=== PATIENT | female | born 1990 | race American Indian/Alaskan Native ===

== ENCOUNTER 2018-01-19 09:48 | Emergency (ER) | payer SELFPAY ==
[2018-01-19 09:56] VITALS: BP 133/97
--- NOTE | 2018-01-19 10:44 | Emergency Department Report ---
HPI - HPI HPI: Patient reports that she has sutures to remove that was placed in [place] 10 days ago. To her right forearm and her right leg. She is also reporting that she had asthma as a child and she is having cough congestion and wheezing in with nasal drainage. She said this started 3 days ago and she's been taking over-the -counter medication and is not helping. She said she hasn't had asthma for a while and she is not using any medication so she thinks it's bronchitis. Denies any fever or chills. Denies any chest pain or nausea or vomiting. She said her tetanus shot is up-to-date. She is currently on her menses and she started 2 days ago . Denies redness or swelling around suture sites. <SANTHOSH ARRIETA - Last Filed: 01/19/18 12:48> <DAVY DOTSON - Last Filed: 01/19/18 20:22> - General Chief Complaint: Laceration/Recheck/Suture Time Seen by Provider: 01/19/18 10:27 ED Past Medical Hx - Past Medical History Previous Medical History?: No - Surgical History Past Surgical History?: Yes Additional Surgical History: , Tubal Ligation - Family History Family history: hypertension - Social History Smoking Status: Current Every Day Smoker Substance Use Type: Alcohol <SANTHOSH ARRIETA - Last Filed: 01/19/18 12:48> ED Review of Systems ROS: Stated complaint: CHEST CONGESTION/SUTURE REMOVAL Other details as noted in HPI Comment: All other systems reviewed and negative Constitutional: no symptoms reported Eyes: denies: eye discharge ENT: congestion. denies: ear pain, throat pain, dental pain, hearing loss Respiratory: cough, wheezing. denies: orthopnea, shortness of breath, SOB with exertion, SOB at rest, stridor Cardiovascular: denies: chest pain, palpitations, dyspnea on exertion, edema, syncope, paroxysmal nocturnal dyspnea Gastrointestinal: denies: nausea, vomiting Musculoskeletal: denies: back pain, joint swelling, arthralgia, myalgia Skin: other (history of 4 sutures removal from right forearm and right leg.) <SANTHOSH ARRIETA - Last Filed: 01/19/18 12:48> ROS: Stated complaint: CHEST CONGESTION/SUTURE REMOVAL Other details as noted in HPI <DAVY DOTSON - Last Filed: 04/24/18 20:22> Physical Exam - Physical Exam Vital Signs: Vital Signs 01/19/18 09:53 Temperature 98.4 F Pulse Rate 83 Respiratory 17 Rate Blood Pressure 133/97 O2 Sat by Pulse 96 Oximetry General: This is a 27-year-old female well-nourished well-developed in no acute distress. Physical Exam: Head: Normocephalic atraumatic Ears:BIateral TM congested without erythema and loss of bony landmarks. Eduardo EAC with normal exam. No mastoid bone tenderness. Mouth: Moist, no pharyngeal erythema or exudate . No tonsillar erythema or exudate. UVULA midline and oral airways patent. No peritonsillar abscess Neck: Nontender to palpate, supple, normal range of motion. No adenopathy. No c- spine tenderness. Nose: Bilateral nasal mucosa congested with clear drainage. Maxillary and frontal sinuses non-tender to palpate. Eyes: Bilateral Sclerae and conjunctiva without injection. Bilateral pupils equal and reactive to light. Bilateral lids are normal. Normal accommodation.BEOMI Abdomen: Soft, nontender to palpation in all quadrants, no guarding or rebound tenderness. No CVA tenderness Lungs: Good throughout lung cali with dry cough. Normal work of breathing and no chest wall tenderness CV: S1, S2. Regular rate and rhythm negative murmur. Capillary refill is less than 3 seconds Skin: Clean dry and intact, no rashes or lesions. Patient with 2 laceration 1 to right leg with 3 suture which is healed without any sign of infection in one to right forearm, proximally with 7 sutures without any signs of infection. No tenderness around sides. Psych: Normal mood and behavior <SANTHOSH ARRIETA A - Last Filed: 01/19/18 12:48> - Physical Exam Vital Signs: Vital Signs 01/19/18 09:53 Temperature 98.4 F Pulse Rate 83 Respiratory 17 Rate Blood Pressure 133/97 O2 Sat by Pulse 96 Oximetry <DAVY DOTSON P - Last Filed: 01/19/18 20:22> ED Course Vital Signs 01/19/18 09:53 Temperature 98.4 F Pulse Rate 83 Respiratory 17 Rate Blood Pressure 133/97 O2 Sat by Pulse 96 Oximetry - Reevaluation(s) Reevaluation #1: 01/19/18 12:57 Patient given albuterol 5 mg and Atrovent 1 mg nebulizer in emergency room, prednisone 60 mg by mouth and Rocephin 1 g IM empirically without any adverse reaction. After nebulizer treatment and prednisone ,lung sounds evaluated and patient's lung sounds are clear and she said she felt better. <SANTHOSH ARRIETA - Last Filed: 01/19/18 12:48> Vital Signs 01/19/18 09:53 Temperature 98.4 F Pulse Rate 83 Respiratory 17 Rate Blood Pressure 133/97 O2 Sat by Pulse 96 Oximetry <DAVY DOTSON - Last Filed: 01/19/18 20:22> ED Medical Decision Making - Radiology Data Radiology results: report reviewed Chest x-ray reveals no acute cardiopulmonary processes. - Medical Decision Making ED course: Patient here complaining of cough congestion and wheezing in with history of asthma which she has not had any flareups for years and thinks she has bronchitis. Patient found to have cough, wheeze and upper respiratory tract infection with congestion. She also had 2 lacerations one to right proximal forearm in 1 to right distal leg. Sites were well approximated without any signs of infection and no tenderness. Patient was given albuterol 5 mg and Atrovent 1 mg nebulizer with and prednisone 60 mg by mouth and lung sounds are evaluated and sounds better aeration that she felt better. Chest x- ray shows no acute cardiac processes. He is also given Rocephin on gram IM in the emergency room empirically for bronchitis. I went to room to remove sutures and patient was not in the room. I spoke with staff and they said that patient left. Patient was seen and treated for upper respiratory infection with cough and congestion, wheezing, bronchitis but she left before discharge information was given or before sutures are removed. Sutures were not placed at this hospital. She said that there placed in [place] 10 days ago. <SANTHOSH ARRIETA - Last Filed: 01/19/18 12:48> Critical care attestation.: If time is entered above; I have spent that time in minutes in the direct care of this critically ill patient, excluding procedure time. <SANTHOSH ARRIETA - Last Filed: 01/19/18 12:48> Critical care attestation.: If time is entered above; I have spent that time in minutes in the direct care of this critically ill patient, excluding procedure time. <DAVY DOTSON - Last Filed: 01/19/18 20:22> ED Disposition Is pt being admited?: No Does the pt Need Aspirin: No <SANTHOSH ARRIETA - Last Filed: 01/19/18 12:48> <DAVY DOTSON P - Last Filed: 01/19/18 20:22> Disposition: Z-07 ELOPED Condition: Stable Instructions: Acute Bronchitis (ED) Referrals: PRIMARY CARE,MD [Primary Care Provider] - 3-5 Days
[2018-01-19] MEDS ORDERED: XYLOCAINE 1% MPF 5 mL INFILTRATI ONE ×2 (10:53→10:56)
[2018-01-19] MEDS ORDERED: PROVENTIL IH ONE (10:53)
[2018-01-19] MEDS ORDERED: DELTASONE PO ONE (10:53)
[2018-01-19] MEDS ORDERED: ROCEPHIN IM STA ×2 (10:53→10:55)
[2018-01-19] MEDS ORDERED: ATROVENT IH ONE (10:59)
--- NOTE | 2018-01-19 12:35 | XRay Report ---
ROUTINE CHEST, TWO VIEWS: HISTORY: Short of breath, cough, wheezing. The trachea, heart, mediastinal contour, lung cali and bony thorax are unremarkable. IMPRESSION: Unremarkable chest x-ray.
== END 2018-01-19 11:30 | disposition left against medical advice (07) ==
LOC: ED 09:48
DX: J40 Bronchitis, not specified as acute or chronic (principal); R05 Cough; R09.81 Nasal congestion; R06.2 Wheezing; F17.200 Nicotine dependence, unspecified, uncomplicated; Z98.51 Tubal ligation status
CPT/HCPCS: 71046; 96372; 99283; J0696; J7512